=== PATIENT | female | born 1990 | race Two or more races ===

== ENCOUNTER 2022-11-03 20:13 | Emergency (ER) | payer BC ==
[~2022-11-03] VITALS: Ht 152.4 cm; Wt 91.6 kg
[2022-11-03] MEDS ORDERED: RINVOQ45 MG PO (21:22)
== END 2022-11-04 03:59 | disposition home or self-care (01) ==
LOC: ER 20:13
DX: R10.2 Pelvic and perineal pain (principal); Z88.1 Allergy status to other antibiotic agents